=== PATIENT | female | born 1955 | race Caucasian/White ===

== ENCOUNTER 2019-02-04 15:52 | Emergency (ER) | payer OTHER ==
[~2019-02-04] VITALS: Ht 154.9 cm; Wt 74.8 kg
[~2019-02-04 15:52] MED LIST: IBUPROFEN 600600 M1 PO
[2019-02-04] MEDS ORDERED: TRAMADOL 50 MG50 MG PO (18:25)
[2019-02-04] MEDS ORDERED: MOBIC7.5 MG PO (18:25)
[2019-02-04 18:59] VITALS: BP 148/64
== END 2019-02-04 19:00 | disposition home or self-care (01) ==
LOC: ER 15:52
DX: M75.41 Impingement syndrome of right shoulder (principal); M25.521 Pain in right elbow; M25.531 Pain in right wrist; F17.210 Nicotine dependence, cigarettes, uncomplicated; Z88.6 Allergy status to analgesic agent